=== PATIENT | female | born 1970 ===

== ENCOUNTER 2017-09-02 16:19 | Emergency (ER) | payer OTHER ==
[~2017-09-02] VITALS: Ht 160 cm; Wt 69.4 kg
[~2017-09-02 16:19] MED LIST: ORPH100T PO
[2017-09-02] MEDS ORDERED: BENICAR20 MG (16:30)
== END 2017-09-03 02:04 | disposition home or self-care (01) ==
LOC: ER 16:19
DX: K57.92 Diverticulitis of intestine, part unspecified, without perforation or abscess without bleeding (principal); R10.31 Right lower quadrant pain

== ENCOUNTER 2018-02-06 08:58 | Emergency (ER) | payer OTHER ==
[~2018-02-06] VITALS: Ht 167.6 cm; Wt 65.8 kg
[~2018-02-06 08:58] MED LIST changes: +BENICAR20 MG
[2018-02-06] MEDS ORDERED: OLMESARTAN MEDO20 MG PO (09:07)
[2018-02-06] MEDS ORDERED: TESSALON PERLE100 M1 PO (12:39)
[2018-02-06] MEDS ORDERED: AIRBORNE EFFER1 EACH PO (12:39)
[2018-02-06] MEDS ORDERED: KETO10TA2 PO (12:39)
[2018-02-06] MEDS ORDERED: MUCINEX DM ER1 EAC1 PO (12:39)
[2018-02-06] MEDS ORDERED: OSEL75CA PO (12:39)
== END 2018-02-06 12:43 | disposition home or self-care (01) ==
LOC: ER 08:58
DX: J11.1 Influenza due to unidentified influenza virus with other respiratory manifestations (principal)

== ENCOUNTER 2021-03-21 07:14 | Emergency (ER) | payer OTHER ==
[~2021-03-21] VITALS: Ht 160 cm; Wt 68.0 kg
[~2021-03-21 07:14] MED LIST changes: +AIRBORNE EFFER1 EACH PO; +KETO10TA2 PO; +MUCINEX DM ER1 EAC1 PO; +OLMESARTAN MEDO20 MG PO; +OSEL75CA PO; +TESSALON PERLE100 M1 PO
[2021-03-21] MEDS ORDERED: BENICAR40 MG PO (07:25)
[2021-03-21] MEDS ORDERED: METRONIDAZOLE500 MG PO (15:08)
[2021-03-21] MEDS ORDERED: PEPCID AC20 MG PO (15:08)
[2021-03-21] MEDS ORDERED: CIPRO500 MG PO (15:08)
[2021-03-21] MEDS ORDERED: INTESTINEX680 M1 PO (15:08)
== END 2021-03-21 16:47 | disposition home or self-care (01) ==
LOC: ER 07:14
DX: R10.84 Generalized abdominal pain (principal); K57.32 Diverticulitis of large intestine without perforation or abscess without bleeding

== ENCOUNTER 2021-08-01 14:36 | Emergency (ER) | payer OTHER ==
[~2021-08-01] VITALS: Ht 165.1 cm; Wt 70.3 kg
[~2021-08-01 14:36] MED LIST changes: +BENICAR40 MG PO; +CIPRO500 MG PO; +INTESTINEX680 M1 PO; +METRONIDAZOLE500 MG PO; +PEPCID AC20 MG PO
== END 2021-08-01 22:00 | disposition home or self-care (01) ==
LOC: ER 14:36
DX: R10.33 Periumbilical pain (principal)